=== PATIENT | male | born 1975 | race Caucasian/White ===

== ENCOUNTER 2025-01-11 09:03 | Outpatient (CLI) | payer BC ==
[2025-01-11 11:27] LABS: #Basophils 0.04 10x3/uL (0.0-0.2); %Basophils 0.5 % (0.0-1.0); %Eosinophils 0.8 % (0.0-10.0); %Lymphocytes 23.2 % (21.0-51.0); %Monocytes 5.2 % (0.0-10.0); %Neutrophils 69.8 % (42.0-75.0); Hematocrit 42.2 % (42.0-52.0); Hemoglobin 14.6 g/dL (14.0-18.0); Mean Corpuscular HGB CONC 34.6 g/dL (32.0-36.0); Mean Corpuscular Hemoglobin 29.6 pg (27.0-31.0); Mean Corpuscular Volume 85.6 fL (78.0-98.0); Mean Platelet Volume 9.7 fL (7.4-10.4); Platelet Count 309 10x3/uL (130-400); RBC Distribution Width 12.3 % (11.5-14.5); Red Blood Cell (RBC) Count 4.93 mill/uL (4.70-6.10)
[2025-01-11 11:57] LABS: Anion Gap 12 mmol/L (10-20); BUN (Urea Nitrogen) 15 mg/dL (8.9-20.6); Calc. Creatinine Clearance 0 mL/min (70-130); Calcium 8.8 mg/dL (7.8-10.44); Carbon Dioxide 22 mmol/L (22-29); Chloride 110 mmol/L (98-107); Estimated GFR 61; Glucose 52 mg/dL (70-105); Sodium 140 mmol/L (136-145)
== END 2025-01-11 09:04 | disposition home or self-care (01) ==
LOC: LABBT 09:03
PROVIDERS: ATTEND Orthopaedic Surgery
DX: Z01.818 Encounter for other preprocedural examination (principal); S63.592A Other specified sprain of left wrist, initial encounter
CPT/HCPCS: 80048; 85025; 93005; 93010

== ENCOUNTER 2025-01-13 05:57 | Day surgery (SDC) | payer BC ==
[2025-01-11 09:16] VITALS: BMI 26.6
[2025-01-13] MEDS ORDERED: Bupivacaine PF 0.5% 30 ML VIAL ONE ×2 (06:50→07:17)
[2025-01-13] MEDS ORDERED: fentaNYL 50 mcg/mL 1 mL Vial ONE (07:17)
[2025-01-13] MEDS ORDERED: Midazolam HCl 2 mg/2 ml Vial ONE ×3 (07:17→09:29)
[2025-01-13] MEDS ORDERED: EPINEPHrine 1 MG/ML VIAL ONE (07:17)
[2025-01-13] MEDS ORDERED: PROPOFOL 20 ML ONE (07:19)
[2025-01-13] MEDS ORDERED: Lidocaine 1% PF 5 ML VIAL ONE (07:19)
[2025-01-13] MEDS ORDERED: fentaNYL PF 100 MCG/2 ML SYRINGE ONE (07:19)
[2025-01-13] MEDS ORDERED: Dexamethasone 20 MG/5 ML VIAL ONE (07:19)
[2025-01-13] MEDS ORDERED: Ondansetron PF 4 MG/2 ML Vial ONE (07:19)
[2025-01-13] MEDS ORDERED: CEFAZOLIN 2 GM VIAL ONE (07:29)
[2025-01-13] MEDS ORDERED: Glycopyrrolate 0.2 MG/ML 5 ML SYRINGE ONE (07:46)
[2025-01-13] MEDS ORDERED: PHENYLEPHRINE-NS 100 MCG/ML 10 ML SYRINGE ONE ×2 (07:46→08:18)
[2025-01-13] MEDS ORDERED: ePHEDrine Sulfate 50 MG/10 ML VIAL ONE (08:00)
[2025-01-13] MEDS ORDERED: Phenylephrine 10 MG/ML VIAL ONE (08:49)
[2025-01-13] MEDS ORDERED: Sodium Chloride 0.9% 100 ML ONE (08:49)
== END 2025-01-13 12:28 | disposition home or self-care (01) ==
LOC: SDC 05:57
PROVIDERS: ATTEND Orthopaedic Surgery
PROC: 3E0R3BZ Introduction of Anesthetic Agent into Spinal Canal, Percutaneous Approach (ICD-10-PCS; principal; 2025-01-13)
PROC: 0MQ64ZZ Repair Left Wrist Bursa and Ligament, Percutaneous Endoscopic Approach (ICD-10-PCS; principal; 2025-01-13)
PROC: 0RBP4ZZ Excision of Left Wrist Joint, Percutaneous Endoscopic Approach (ICD-10-PCS; principal; 2025-01-13)
DX: S63.8X2A Sprain of other part of left wrist and hand, initial encounter (principal); F17.290 Nicotine dependence, other tobacco product, uncomplicated; X58.XXXA Exposure to other specified factors, initial encounter
CPT/HCPCS: C1713; J0171; J0665; J1100; J2250; J2371; J2405; J2704; J3010